=== PATIENT | male | born 1985 | race Asian ===

== ENCOUNTER 2017-09-20 21:52 | Emergency (ER) | payer MEDICAID ==
[~2017-09-20] VITALS: Ht 165.1 cm; Wt 75.0 kg
[~2017-09-20 21:52] MED LIST: ALBU8.5H8 IH
[2017-09-20] MEDS ORDERED: AUD NEB (22:08)
[2017-09-20] MEDS ORDERED: 0.9% SODIUM CHLORIDE 5 ML NEB SOLUTION NEB ONE (22:09)
[2017-09-20] MEDS ORDERED: ALBUTEROL SULFATE 5 MG/ML 20 ML NEB SOLN [BULK] NEB ONE (22:15)
[2017-09-20] MEDS ORDERED: IPRATROPIUM BROMIDE 0.5 MG/2.5 ML NEB SOLUTION NEB ONE (22:15)
[2017-09-21] MEDS ORDERED: ALBUTEROL SULFATE 2.5 MG/0.5 ML NEB SOLUTION NEB ONE (00:15)
[2017-09-21] MEDS ORDERED: PredniSONE 20 MG TABLET PO ONE (00:15)
[2017-09-21 01:00] VITALS: BP 128/75
== END 2017-09-21 01:37 | disposition home or self-care (01) ==
LOC: EMS 21:53
DX: J45.909 Unspecified asthma, uncomplicated (principal)
CPT/HCPCS: 71045; 94644; 99285; J7512; J7611; J7613; 94640

== ENCOUNTER 2018-04-26 11:42 | Emergency (ER) | payer MEDICAID ==
[~2018-04-26] VITALS: Ht 165.1 cm; Wt 77.3 kg
[~2018-04-26 11:42] MED LIST changes: +AUD NEB
[2018-04-26] MEDS ORDERED: IPRATROPIUM BROMIDE 0.5 MG/2.5 ML NEB SOLUTION NEB ONE (12:00)
[2018-04-26] MEDS ORDERED: ACETAMINOPHEN 500 MG TABLET PO ONE (12:00)
[2018-04-26] MEDS ORDERED: ALBUTEROL SULFATE 5 MG/ML 20 ML NEB SOLN [BULK] NEB ONE (12:00)
[2018-04-26] MEDS ORDERED: PredniSONE 20 MG TABLET PO ONE (12:00)
[2018-04-26] MEDS ORDERED: 0.9% SODIUM CHLORIDE 5 ML NEB SOLUTION NEB ONE ×2 (12:06)
[2018-04-26 13:45] VITALS: BP 113/69
== END 2018-04-26 13:57 | disposition home or self-care (01) ==
LOC: EMS 11:43
DX: J45.901 Unspecified asthma with (acute) exacerbation (principal)
CPT/HCPCS: 71045; 94644; 99285; J7512